=== PATIENT | female | born 1980 | race Caucasian/White ===

== ENCOUNTER 2019-02-01 02:48 | Emergency (ER) | payer MEDICAID ==
[~2019-02-01] VITALS: Ht 162.6 cm; Wt 63.6 kg
[2019-02-01 03:00] VITALS: Ht 162.6 cm; Wt 63.6 kg
[2019-02-01] MEDS ORDERED: PREDNISONE20 MG PO (03:18)
[2019-02-01] MEDS ORDERED: NAPROSYN500 MG PO (03:18)
[2019-02-01 03:35] VITALS: BP 132/87
== END 2019-02-01 03:36 | disposition home or self-care (01) ==
LOC: D.ER 02:48
DX: M54.12 Radiculopathy, cervical region (principal)

== ENCOUNTER 2019-03-11 15:51 | Emergency (ER) | payer MEDICAID ==
[~2019-03-11] VITALS: Ht 162.6 cm; Wt 61.4 kg
[~2019-03-11 15:51] MED LIST: NAPROSYN500 MG PO; PREDNISONE20 MG PO
[2019-03-11 15:59] VITALS: Ht 162.6 cm; Wt 61.4 kg
[2019-03-11] MEDS ORDERED: NORVASC5 MG PO (17:18)
[2019-03-11] MEDS ORDERED: CLEOCIN HCL300 MG PO (17:18)
[2019-03-11] MEDS ORDERED: NAPROSYN500 MG PO (17:18)
[2019-03-11 17:47] VITALS: BP 174/101
== END 2019-03-11 17:47 | disposition home or self-care (01) ==
LOC: D.ER 15:51
DX: K05.30 Chronic periodontitis, unspecified (principal); R03.0 Elevated blood-pressure reading, without diagnosis of hypertension; F17.210 Nicotine dependence, cigarettes, uncomplicated

== ENCOUNTER 2019-04-01 18:52 | Emergency (ER) | payer MEDICAID ==
[~2019-04-01] VITALS: Ht 162.6 cm; Wt 71.8 kg
[~2019-04-01 18:52] MED LIST changes: +CLEOCIN HCL300 MG PO; +NORVASC5 MG PO
[2019-04-01 18:56] VITALS: Ht 162.6 cm; Wt 71.8 kg
[2019-04-01] MEDS ORDERED: BUSPIRONE HCL30 MG PO (18:59)
[2019-04-01] MEDS ORDERED: ZOLOFT100 MG PO (18:59)
[2019-04-01] MEDS ORDERED: NORVASC5 MG PO (18:59)
[2019-04-01 20:32] LABS: BASOPHILS 0.2 % (0-2); EOSINOPHILS 0.7 % (0-7); HEMATOCRIT 40.6 % (36.0-48.0); HEMOGLOBIN 13.9 g/dL (12-16); IMMATURE GRANULOCYTES 0.2 % (0-5); LYMPHOCYTES 22.3 % (15-50); MCH 31.1 pg (26.0-34.0); MCHC 34.2 g/dL (31.0-37.0); MCV 90.8 fL (80.0-100.0); MEAN PLATELET VOLUME 9.4 fL (7.4-10.4); MONOCYTES 8.6 % (2-11); PLATELET COUNT 289 10x3/uL (130-400); RBC 4.47 10x6/uL (4.00-5.40); RDW 12.9 % (11.5-14.5); WBC 8.9 10x3/uL (4.8-10.8)
[2019-04-01 20:48] LABS: CALC OSMOLALITY 277 mosm/kg (275-300); CALCIUM 8.7 mg/dL (8.5-10.1); CARBON DIOXIDE 27.3 mmol/L (21.0-32.0); CHLORIDE - SERUM 102 mmol/L (98-107); CREATININE - SERUM 0.7 mg/dL (0.6-1.3); GLUCOSE 123 mg/dL (74-106); POTASSIUM - SERUM 3.1 mmol/L (3.5-5.1); SODIUM 138 mmol/L (136-145); UREA NITROGEN 14 mg/dL (7-18); eGFR NON AFRICAN AMERICAN > 90 mL/min (90-120)
[2019-04-01 21:05] LABS: ALBUMIN 3.7 g/dL (3.4-5.0); ALKALINE PHOSPHATASE 62 U/L (46-116); ALT (SGPT) 16 U/L (10-68); BILIRUBIN - TOTAL 0.52 mg/dL (0.2-1.3); CKMB 0.3 U/L (0.0-3.6); CREATINE KINASE 39 UL (21-215); PROTEIN - SERUM 6.9 g/dL (6.4-8.2); TROPONIN-I < 0.017 ng/mL (0.000-0.060)
[2019-04-01 21:47] VITALS: BP 118/79
== END 2019-04-01 21:48 | disposition home or self-care (01) ==
LOC: D.ER 18:52
PROVIDERS: Family Medicine
DX: R53.81 Other malaise (principal); F41.9 Anxiety disorder, unspecified; I10 Essential (primary) hypertension; Z72.0 Tobacco use

== ENCOUNTER 2020-09-19 03:13 | Emergency (ER) | payer SELFPAY ==
[~2020-09-19] VITALS: Ht 162.6 cm; Wt 68.0 kg
[~2020-09-19 03:13] MED LIST changes: +BUSPIRONE HCL30 MG PO; +ZOLOFT100 MG PO
[2020-09-19 03:26] VITALS: BP 149/80; Ht 162.6 cm; Wt 68.0 kg
== END 2020-09-19 04:39 | disposition home or self-care (01) ==
LOC: D.ER 03:13
DX: M79.605 Pain in left leg (principal); I10 Essential (primary) hypertension; Z72.0 Tobacco use